=== PATIENT | male | born 1950 | race Caucasian/White ===

== ENCOUNTER → 2021-03-21 | Outpatient (CLI) | payer MEDICARE, OTHER | LOC: ZLAB.STJ 16:40 | DX: N18.6 End stage renal disease (principal); N25.81 Secondary hyperparathyroidism of renal origin; Z94.83 Pancreas transplant status ==

== ENCOUNTER → 2021-04-04 | Outpatient (REF) ==
[2021-04-04 14:57] LABS: BASO % 0.6 % (0.0-2.0); EOS # 0.2 (0.0-0.7); EOS % 4.9 % (0-4.0); GRAN # 2.1 (1.4-6.5); GRAN % 59.3 % (42.2-75.2); LYMPH # 0.9 (1.2-3.4); LYMPH % 25.1 % (20.0-51.0); MEAN CELL VOLUME 101 fl (80.0-100.0); MEAN CORPUSCULAR HGB CONC 32 g/dl (33.0-37.0); MEAN PLATELET VOLUME 11.4 fl (7.4-10.4); MONO # 0.3 (0.1-0.6); MONO % 9.8 % (1.7-9.3); PLATELET COUNT 179 K/mm3 (130-400); RED BLOOD COUNT 2.82 M/mm3 (4.20-5.60)
[2021-04-04 15:01] LABS: HEMATOCRIT 28.6 % (42.0-52.0); MEAN CORPUSCULAR HEMOGLOBIN 32 pg (27.0-31.0)
[2021-04-04 15:05] LABS: ALBUMIN 3.7 gm/dL (3.5-5.0); BILIRUBIN,TOTAL 0.3 mg/dL (0.0-1.0); CALCIUM 8.2 mg/dL (8.4-10.2); CREATININE, serum 6.68 (0.66-1.25); POTASSIUM 4.3 mmol/L (3.4-5.0); TOTAL PROTEIN 6.8 gm/dL (6.4-8.2)
[2021-04-04 15:35] LABS: THYROID STIMULATING HORMONE 1.76 uIU/mL (0.465-4.680)
== END ==
LOC: ZLAB.STJ 14:47
PROVIDERS: Family Medicine
DX: Z13.228 Encounter for screening for other metabolic disorders (principal); R68.89 Other general symptoms and signs; R06.03 Acute respiratory distress; E11.21 Type 2 diabetes mellitus with diabetic nephropathy; E03.9 Hypothyroidism, unspecified

== ENCOUNTER → 2021-04-11 | Outpatient (REF) | LOC: ZLAB.STJ 17:30 | DX: I10 Essential (primary) hypertension (principal); E11.9 Type 2 diabetes mellitus without complications; E03.9 Hypothyroidism, unspecified ==

== ENCOUNTER → 2021-04-16 | Outpatient (CLI) | payer MEDICARE, OTHER ==
[2021-04-16 17:14] LABS: BASO % 0.5 % (0.0-2.0); EOS # 0.1 (0.0-0.7); EOS % 2.9 % (0-4.0); GRAN # 2.6 (1.4-6.5); GRAN % 68.4 % (42.2-75.2); LYMPH # 0.7 (1.2-3.4); LYMPH % 19.5 % (20.0-51.0); MEAN CELL VOLUME 99 fl (80.0-100.0); MEAN CORPUSCULAR HGB CONC 32 g/dl (33.0-37.0); MEAN PLATELET VOLUME 11.7 fl (7.4-10.4); MONO # 0.3 (0.1-0.6); MONO % 8.4 % (1.7-9.3); PLATELET COUNT 143 K/mm3 (130-400); RED BLOOD COUNT 2.71 M/mm3 (4.20-5.60); REDCELL DISTRIBUTION WIDTH-CV 14.2 % (11.5-14.5)
[2021-04-16 17:18] LABS: HEMATOCRIT 26.9 % (42.0-52.0); HEMOGLOBIN 8.5 g/dl (13.5-18.0); MEAN CORPUSCULAR HEMOGLOBIN 31 pg (27.0-31.0)
[2021-04-16 17:20] LABS: ALBUMIN 3.5 gm/dL (3.5-5.0); BILIRUBIN,TOTAL 0.3 mg/dL (0.0-1.0); CALCIUM 8.6 mg/dL (8.4-10.2); CREATININE, serum 9.24 (0.66-1.25); TOTAL PROTEIN 6.4 gm/dL (6.4-8.2)
[2021-04-16 17:50] LABS: THYROID STIMULATING HORMONE 1.46 uIU/mL (0.465-4.680)
== END ==
LOC: ZLAB.STJ 16:17
PROVIDERS: Family Medicine
DX: I10 Essential (primary) hypertension (principal); D63.1 Anemia in chronic kidney disease; E11.9 Type 2 diabetes mellitus without complications; E03.9 Hypothyroidism, unspecified

== ENCOUNTER → 2021-04-17 | Outpatient (REF) ==
[2021-04-17 10:16] LABS: BASO % 0.7 % (0.0-2.0); EOS # 0.1 (0.0-0.7); EOS % 2.6 % (0-4.0); GRAN # 1.3 (1.4-6.5); GRAN % 48.3 % (42.2-75.2); LYMPH % 35.8 % (20.0-51.0); MEAN CELL VOLUME 100 fl (80.0-100.0); MEAN CORPUSCULAR HGB CONC 32 g/dl (33.0-37.0); MEAN PLATELET VOLUME 11.8 fl (7.4-10.4); MONO # 0.3 (0.1-0.6); MONO % 12.2 % (1.7-9.3); PLATELET COUNT 123 K/mm3 (130-400); RED BLOOD COUNT 2.54 M/mm3 (4.20-5.60); REDCELL DISTRIBUTION WIDTH-CV 14.3 % (11.5-14.5)
[2021-04-17 10:17] LABS: HEMATOCRIT 25.3 % (42.0-52.0); MEAN CORPUSCULAR HEMOGLOBIN 31 pg (27.0-31.0)
[2021-04-17 10:23] LABS: ALBUMIN 3.3 gm/dL (3.5-5.0); BILIRUBIN,TOTAL 0.2 mg/dL (0.0-1.0); CALCIUM 7.8 mg/dL (8.4-10.2); CREATININE, serum 5.81 (0.66-1.25); POTASSIUM 4.5 mmol/L (3.4-5.0)
[2021-04-17 10:53] LABS: THYROID STIMULATING HORMONE 1.33 uIU/mL (0.465-4.680)
== END ==
LOC: ZLAB.STJ 10:08
PROVIDERS: Family Medicine
DX: D63.1 Anemia in chronic kidney disease (principal); E11.21 Type 2 diabetes mellitus with diabetic nephropathy; R79.89 Other specified abnormal findings of blood chemistry; E11.22 Type 2 diabetes mellitus with diabetic chronic kidney disease; N18.9 Chronic kidney disease, unspecified; E03.9 Hypothyroidism, unspecified

== ENCOUNTER → 2021-07-06 | Outpatient (CLI) | payer MEDICARE, OTHER ==
[2021-07-06 16:18] LABS: CLOSTRIDIUM DIFF A/B NEG; CLOSTRIDIUM DIFF A/B INTERP No C.diff present
== END ==
LOC: ZLAB.STJ 13:44
PROVIDERS: Family Medicine
DX: A04.71 Enterocolitis due to Clostridium difficile, recurrent (principal)

== ENCOUNTER → 2021-07-16 | Outpatient (CLI) | payer MEDICARE, OTHER | LOC: ZCOL.LAB 16:30 | DX: E11.21 Type 2 diabetes mellitus with diabetic nephropathy (principal) ==

== ENCOUNTER → 2021-09-19 | Outpatient (CLI) | payer MEDICARE, OTHER ==
[2021-09-19 19:14] LABS: BASO % 0.3 % (0.0-2.0); GRAN # 2.1 K/mm3 (1.4-6.5); GRAN % 72.6 % (42.2-75.2); LYMPH # 0.6 K/mm3 (1.2-3.4); MEAN CELL VOLUME 103 fl (80.0-100.0); MEAN CORPUSCULAR HGB CONC 31 g/dl (33.0-37.0); MONO # 0.2 K/mm3 (0.1-0.6); MONO % 6.8 % (1.7-9.3); PLATELET COUNT 151 K/mm3 (130-400); RED BLOOD COUNT 2.65 M/mm3 (4.20-5.60); REDCELL DISTRIBUTION WIDTH-CV 14.6 % (11.5-14.5)
[2021-09-19 19:27] LABS: HEMATOCRIT 27.4 % (42.0-52.0); HEMOGLOBIN 8.4 g/dl (13.5-18.0); MEAN CORPUSCULAR HEMOGLOBIN 32 pg (27.0-31.0)
[2021-09-19 19:30] LABS: ALBUMIN 2.9 gm/dL (3.4-4.8); BILIRUBIN,TOTAL 0.8 mg/dL (0.2-1.2); CREATININE, serum 5.47 mg/dL (0.72-1.25); POTASSIUM 4.1 mmol/L (3.5-4.5); TOTAL PROTEIN 5.4 gm/dL (6.2-8.1)
[2021-09-19 19:49] LABS: THYROID STIMULATING HORMONE 2.674 uIU/mL (0.350-4.940)
== END ==
LOC: ZLAB.STJ 18:07
PROVIDERS: Family Medicine
DX: N18.6 End stage renal disease (principal); N25.81 Secondary hyperparathyroidism of renal origin; R53.83 Other fatigue

== ENCOUNTER → 2021-10-17 | Outpatient (CLI) | payer MEDICARE, OTHER ==
[2021-10-17 17:05] LABS: HEMATOCRIT 28.5 % (42.0-52.0)
[2021-10-17 17:20] LABS: CHOLESTEROL RISK RATIO 2.4
== END ==
LOC: ZLAB.STJ 15:17
PROVIDERS: Family Medicine
DX: D50.9 Iron deficiency anemia, unspecified (principal); E78.5 Hyperlipidemia, unspecified; E11.21 Type 2 diabetes mellitus with diabetic nephropathy

== ENCOUNTER → 2021-10-31 | Outpatient (CLI) | payer MEDICARE, OTHER ==
[2021-10-31 15:38] LABS: BASO % 0.8 % (0.0-2.0); EOS % 0.5 % (0.0-4.0); GRAN # 2.8 K/mm3 (1.4-6.5); GRAN % 76.4 % (42.2-75.2); HEMOGLOBIN 10.6 g/dl (13.5-18.0); LYMPH # 0.6 K/mm3 (1.2-3.4); LYMPH % 15.5 % (20.0-51.0); MEAN CELL VOLUME 104 fl (80.0-100.0); MEAN CORPUSCULAR HEMOGLOBIN 33 pg (27-31); MEAN CORPUSCULAR HGB CONC 32 g/dl (33.0-37.0); MEAN PLATELET VOLUME 11.9 fl (7.4-10.4); MONO # 0.2 K/mm3 (0.1-0.6); MONO % 6.3 % (1.7-9.3); PLATELET COUNT 178 K/mm3 (130-400); RED BLOOD COUNT 3.21 M/mm3 (4.20-5.60); REDCELL DISTRIBUTION WIDTH-CV 16.2 % (11.5-14.5)
[2021-10-31 15:43] LABS: INR 1.4 (0.8-3.0); PROTHROMBIN TIME 15.6 SECONDS (9.7-12.8)
[2021-10-31 15:46] LABS: HEMATOCRIT 33.5 % (42.0-52.0)
[2021-10-31 15:54] LABS: ALBUMIN 2.9 gm/dL (3.4-4.8); BILIRUBIN,TOTAL 0.8 mg/dL (0.2-1.2); CALCIUM 6.4 mg/dL (8.4-10.2); CREATININE, serum 7.8 mg/dL (0.72-1.25); TOTAL PROTEIN 5.4 gm/dL (6.2-8.1)
== END ==
LOC: ZLAB.STJ 13:38
PROVIDERS: Physician Assistant
DX: R19.5 Other fecal abnormalities (principal); R19.7 Diarrhea, unspecified

== ENCOUNTER → 2021-11-02 | Outpatient (CLI) | payer MEDICARE, OTHER ==
[2021-11-02 14:46] LABS: CLOSTRIDIUM DIFF A/B NEG; CLOSTRIDIUM DIFF A/B INTERP No C.diff present
== END ==
LOC: ZLAB.STJ 13:07
PROVIDERS: Physician Assistant
DX: R19.7 Diarrhea, unspecified (principal)

== ENCOUNTER → 2021-11-15 | Outpatient (CLI) | payer MEDICARE, OTHER ==
[~2021-11-15] MED LIST: ARICEPT10 MG PO; ATIVAN 0.50.5 MG/TAB PO; B-121000 MCG PO; CELLCEPT 5500 MG/TAB PO; CREON 36000 PO; FLEET MINE1 BOT/133 RC; FOLIC ACID 11 MG/TA1 PO; GENTLE LAXATIVE10 MG RC; GOLYTELY SOLU4000 ML PO; IMODIUM 2MG CAPS2 MG PO; LEVOXYL0.1 MG PO; LOMOTIL 0.025 M1 TAB PO; PERIACTIN 4MG TA4 MG PO; PREPH RC; PROGRAF 1MG1 MG PO; REFRESH CELLUVI1 SOL OP; REFRESH PLUS 00.4 M1 OP; REMERON30 MG PO; ROXANOL 20MG20 MG/ML SL; SINGULAIR 110 MG/TAB PO; TRANSDERM-0.5 MG/21 TD; TYLENOL 325MG325 MG PO; ULTRAM 50MG TAB50 MG PO; VITAMIN D31000 IU PO; ZOFRAN 4MG T4 MG/TAB PO; [UNRECOGNIZED DRUG - CODE] PO
[2021-11-15 18:05] LABS: CLOSTRIDIUM DIFF A/B NEG; CLOSTRIDIUM DIFF A/B INTERP No C.diff present
[2021-11-19] VITALS (22 sets, daily range): O2SAT 66–100
== END ==
LOC: ZLAB.STJ 15:18
PROVIDERS: Physician Assistant
DX: R19.7 Diarrhea, unspecified (principal)

== ENCOUNTER 2021-11-16 02:32 | Inpatient (IN) | payer MEDICARE, OTHER ==
[~2021-11-16] VITALS: Ht 167.6 cm; Wt 48.3 kg
[2021-11-16] VITALS (419 sets, daily range): BP systolic 89–109; BP diastolic 69–81; PULSE 67–75; TEMP 37.2; O2SAT 87–100
[2021-11-16 02:56] LABS: HEMOGLOBIN 10.8 g/dl (13.5-18.0); MEAN CELL VOLUME 99 fl (80.0-100.0); MEAN CORPUSCULAR HEMOGLOBIN 33 pg (27-31); MEAN CORPUSCULAR HGB CONC 33 g/dl (33.0-37.0); MEAN PLATELET VOLUME 11.8 fl (7.4-10.4); PLATELET COUNT 132 K/mm3 (130-400); RED BLOOD COUNT 3.31 M/mm3 (4.20-5.60); REDCELL DISTRIBUTION WIDTH-CV 14.3 % (11.5-14.5)
[2021-11-16 02:59] LABS: HEMATOCRIT 32.8 % (42.0-52.0)
[2021-11-16 03:10] LABS: BAND 11 % (0-10); HYPOCHROMIA 1+; METAMYELOCYTE 2 % (0-0); NEUTROPHILS 85 % (42.0-75.2); PLATELET ESTIMATE NORMAL (NORMAL)
[2021-11-16 03:11] LABS: SCHISTOCYTES 1+
[2021-11-16 03:13] LABS: ALBUMIN 2.6 gm/dL (3.4-4.8); CALCIUM 6.6 mg/dL (8.4-10.2); POTASSIUM 4.7 mmol/L (3.5-4.5); TOTAL PROTEIN 4.8 gm/dL (6.2-8.1)
[2021-11-16 03:37] LABS: CREATININE, serum 4.46 mg/dL (0.72-1.25)
[2021-11-16 05:25] LABS: ARTERIAL BLD GAS O2 SATURATION 99.5 % (92-100); ARTERIAL BLD GAS TCO2 CT 27.6; ARTERIAL BLOOD GAS BASE EXCESS 1.5 (-2-2); ARTERIAL BLOOD GAS HCO3 26.3 meq/L (22-26); ARTERIAL BLOOD GAS PCO2 42.3 mmHg (35-45); ARTERIAL BLOOD GAS pH 7.41 (7.35-7.45)
[2021-11-16 05:26] LABS: ARTERIAL BLOOD GAS PO2 213.6 mmHg (80-100)
[2021-11-16 05:59] LABS: ARTERIAL BLD GAS O2 SATURATION 96.9 % (92-100); ARTERIAL BLD GAS TCO2 CT 21.9; ARTERIAL BLOOD GAS BASE EXCESS 0.7 (-2-2); ARTERIAL BLOOD GAS HCO3 21.2 meq/L (22-26); ARTERIAL BLOOD GAS PCO2 22.2 mmHg (35-45); ARTERIAL BLOOD GAS PO2 91.4 mmHg (80-100); ARTERIAL BLOOD GAS pH 7.59 (7.35-7.45)
[2021-11-16 06:03] LABS: INR 1.7 (0.8-3.0); PROTHROMBIN TIME 18.8 SECONDS (9.7-12.8)
[2021-11-16 06:17] LABS: SALICYLATE < 5.0 mg/dL (15.0-30.0)
[2021-11-16 06:24] LABS: TROPONIN-I 0.593 ng/mL (0.00-0.033)
[2021-11-16] MEDS ORDERED: GOLYTELY SOLU4000 ML PO (07:10)
[2021-11-16] MEDS ORDERED: PREPH RC (07:11)
[2021-11-16] MEDS ORDERED: LOMOTIL 0.025 M1 TAB PO (07:11)
[2021-11-16] MEDS ORDERED: TYLENOL 325MG325 MG PO (07:11)
[2021-11-16] MEDS ORDERED: ZOFRAN 4MG T4 MG/TAB PO (07:11)
[2021-11-16] MEDS ORDERED: PROGRAF 1MG1 MG PO (07:12)
[2021-11-16] MEDS ORDERED: [UNRECOGNIZED DRUG - CODE] PO ×2 (07:12)
[2021-11-16] MEDS ORDERED: CREON 36000 PO (07:13)
[2021-11-16] MEDS ORDERED: IMODIUM 2MG CAPS2 MG PO (07:13)
[2021-11-16] MEDS ORDERED: CELLCEPT 5500 MG/TAB PO (07:13)
[2021-11-16] MEDS ORDERED: GENTLE LAXATIVE10 MG RC (07:14)
[2021-11-16] MEDS ORDERED: FLEET MINE1 BOT/133 RC (07:14)
[2021-11-16] MEDS ORDERED: PERIACTIN 4MG TA4 MG PO (07:14)
[2021-11-16] MEDS ORDERED: ARICEPT10 MG PO (07:14)
[2021-11-16] MEDS ORDERED: FOLIC ACID 11 MG/TA1 PO (07:15)
[2021-11-16] MEDS ORDERED: REMERON30 MG PO (07:15)
[2021-11-16] MEDS ORDERED: SINGULAIR 110 MG/TAB PO (07:15)
[2021-11-16] MEDS ORDERED: ULTRAM 50MG TAB50 MG PO (07:15)
[2021-11-16] MEDS ORDERED: LEVOXYL0.1 MG PO (07:15)
[2021-11-16] MEDS ORDERED: VITAMIN D31000 IU PO (07:16)
[2021-11-16] MEDS ORDERED: B-121000 MCG PO (07:16)
[2021-11-16] MEDS ORDERED: REFRESH PLUS 00.4 M1 OP (07:16)
[2021-11-16] MEDS ORDERED: REFRESH CELLUVI1 SOL OP (07:17)
--- NOTE | 2021-11-16 09:05 | NUR ---
PT ADMITTED TO ICU FROM ER. PT WAS BROUGHT TO ER EARLY THIS AM FROM [facility] DUE TO BEING FOUND NON RESPONSIVE, HYPOTHERMIC, AND HYPOGLYCEMIC. PT WAS INTUBATED IN ER AND BEGAN REWARMING WITH DAYAMI HUGGER. PT HAS EXTENSIVE MEDICAL HISTORY THAT WAS REVIEWED WITH PT'S DAUGHTER, EVERETT. EVERETT IS DPOA. DPOA WAS COPIED AND PLACED IN PT'S FILE. UPON ARRIVING TO ICU, PT WAS TRANSFERED TO BED, GTTS WERE CONFIRMED, RECTAL TUBE PLACED DUE TO CONTINUOUS DIARRHEA AND IMPAIRED SKIN INTEGRITY. RECTAL TEMP PROBE PLACED FOR CLOSE/ACCURATE TEMP MONITORING. PT CONTINUES TO BE HYPOTHERMIC AT 33.2 DEGREES CELSIUS. ONCE PT WAS SETTLED, FAMILY UPDATED BY DR. GARCIA. PT'S DAUGHTER NOW AT BEDSIDE.
--- NOTE | 2021-11-16 09:30 | NUR ---
Family meeting with patient's 2 daughters & extended family present. One son lives in [place]; not present or pn phone. Dr. Wilkins asked questions about patient's history that was not able to be obtained from [place] records. Dr. Wilkins updated family on status & plan of care. Code status discussed & daughter/DPOA; family requests DNR status. This RN advised of visitor guidelines & discussed opportunities for remote visits using technology. Requested copy of DPOA paperwork from daughter. All questions answered.
[2021-11-16 10:32] LABS: BASO % 0.3 % (0.0-2.0); EOS % 0.3 % (0.0-4.0); GRAN % 81.3 % (42.2-75.2); LYMPH # 0.5 K/mm3 (1.2-3.4); LYMPH % 13.7 % (20.0-51.0); MEAN CELL VOLUME 101 fl (80.0-100.0); MEAN CORPUSCULAR HGB CONC 32 g/dl (33.0-37.0); MONO # 0.1 K/mm3 (0.1-0.6); MONO % 3.6 % (1.7-9.3); PLATELET COUNT 85 K/mm3 (130-400); RED BLOOD COUNT 2.78 M/mm3 (4.20-5.60); REDCELL DISTRIBUTION WIDTH-CV 14.4 % (11.5-14.5)
[2021-11-16 10:35] LABS: HEMATOCRIT 28.1 % (42.0-52.0); MEAN CORPUSCULAR HEMOGLOBIN 32 pg (27-31)
[2021-11-16 10:45] LABS: ALBUMIN 2.2 gm/dL (3.4-4.8); CALCIUM 6.5 mg/dL (8.4-10.2); CREATININE, serum 4.3 mg/dL (0.72-1.25); POTASSIUM 4.3 mmol/L (3.5-4.5); TOTAL PROTEIN 4.1 gm/dL (6.2-8.1)
[2021-11-16 10:53] LABS: TROPONIN-I 6 HR POST INITIAL 0.674 ng/mL (0.00-0.033)
[2021-11-16 10:54] LABS: ARTERIAL BLD GAS O2 SATURATION 99.1 % (92-100); ARTERIAL BLD GAS TCO2 CT 23.9; ARTERIAL BLOOD GAS BASE EXCESS -0.3 (-2-2); ARTERIAL BLOOD GAS HCO3 22.9 meq/L (22-26); ARTERIAL BLOOD GAS PCO2 32.4 mmHg (35-45); ARTERIAL BLOOD GAS PO2 235.2 mmHg (80-100); ARTERIAL BLOOD GAS pH 7.47 (7.35-7.45)
--- NOTE | 2021-11-16 13:05 | NUR ---
Patient currently on mechanical vent. Phone call made to the patient's daughter Colin ([phone]) to complete intake. Patient resides at [facility]. He receives assistance with his ADL's from care staff and utilizes a walker to assist with ambulation. Patient has no oxygen needs at home. PCP is Dr. Dudley and he receives his medications through the [facility]pc. Patient has a DPOA-HC located in his EMR listing Colin as his agent. Patient is currently on dialysis M,W,F. Garth with [facility] reports that over this last month they have been having conversations with the patient's family about transitioning to hospice care due to his kidneys. Garth reports that during these conversations, the patient has verbalized that he would like to move to comfort care, but that the family has been a barrier to this transition.
--- NOTE | 2021-11-16 15:03 | NUR ---
Met with daughter, Colin, at bedside and she called her brother, Mansoor, to also speak with RAAD Sky and Shan. In discussion with the patient's children, they were waiting for the results of the scope that was supposed to take place today before moving the patient to hospice care in [place]. We discussed what comfort care would look like here and the visitiation policy, if that is something they were thinking about. Colin is very worried about getting as much family here as possible if they decide to move to comfort care. Per discussion with her and Mansoor, the plan right now is to see how the patient does over the weekend and if he can come off the ventilator and then talk again Friday.
--- NOTE | 2021-11-16 16:15 | NUR ---
RAAD and palliative care RN Elise met with patient's daughter Colin at bedside. Colin contacts her brother who is located in [place] by phone and places him on speaker phone. Colin states that before this, they were waiting to see what the patient's scope showed before transitioning him to comfort care and moving him to a facility in [place] so he could be closer to her. Colin voices that the family being able to see him is her top priority right now. The patient has 3 childrens and several grandchildren. All are 18 years of age and over. Colin would like more time to speak with her siblings.
[2021-11-16 16:20] LABS: COLLECTION METHOD CATHETER
[2021-11-16 16:46] LABS: PH 8 (5-8); SQUAMOUS EPITHELIAL None Seen /hpf (0-10); URINE APPEARANCE Cloudy (CLEAR/HAZY); URINE BACTERIA None Seen /hpf (NONE SEEN); URINE BILIRUBIN Negative (NEGATIVE); URINE BLOOD 1+ (NEGATIVE); URINE COLOR Yellow (YELLOW); URINE GLUCOSE Negative (NEGATIVE); URINE KETONE Negative (NEGATIVE); URINE LEUKOCYTE ESTERASE Trace (NEGATIVE); URINE NITRATE Negative (NEGATIVE); URINE PROTEIN(semi-quant) 3+ (NEGATIVE); URINE UROBILINOGEN Negative (NEGATIVE)
[2021-11-16 17:10] LABS: CLOSTRIDIUM DIFF A/B NEG; CLOSTRIDIUM DIFF A/B INTERP No C.diff present
--- NOTE | 2021-11-16 17:40 | NUR ---
SEDATION VACATION NOT APPROPRIATE AT THIS TIME. PT HAS WOKEN UP THROUGHOUT SHIFT AND HAS BEEN ABLE TO FOLLOW COMMANDS IN BETWEEN DISTURBANCES.
--- NOTE | 2021-11-16 19:55 | NUR ---
BEDSIDE REPORT GIVEN TO STEPHY GUZMÁN. PT'S DAUGHTER, EVERETT PRESENT FOR REPORT. ALL QUESTIONS ANSWERES APPROPRIATELY.
[2021-11-16 20:17] LABS: ARTERIAL BLD GAS O2 SATURATION 98.8 % (92-100); ARTERIAL BLD GAS TCO2 CT 22.3; ARTERIAL BLOOD GAS BASE EXCESS -2.1 (-2-2); ARTERIAL BLOOD GAS HCO3 21.3 meq/L (22-26); ARTERIAL BLOOD GAS pH 7.44 (7.35-7.45)
[2021-11-16 20:19] LABS: ARTERIAL BLOOD GAS PO2 156.7 mmHg (80-100)
--- NOTE | 2021-11-16 20:43 | NUR ---
DR. LEVY PHONED, UPDATED ON PATIENT AND PLAN FOR POSSIBLE COMFORT CARE ON FRIDAY DEPENDING ON HOW PATIENT DID OVER THE WEEKEND, DR. LEVY STATED THAT HE DID NOT PLAN ON DOING DIALYSIS THIS WEEKEND AND WOULD WAIT ON DECISION ON FRIDAY TO DECIDE ABOUT ADDITIONAL DIALYSIS
[2021-11-17] VITALS (692 sets, daily range): BP systolic 74–126; BP diastolic 60–95; PULSE 65–81; TEMP 36; O2SAT 33–100
[2021-11-17 05:03] LABS: ARTERIAL BLD GAS O2 SATURATION 96.1 % (92-100); ARTERIAL BLD GAS TCO2 CT 20.7; ARTERIAL BLOOD GAS BASE EXCESS -4.3 (-2-2); ARTERIAL BLOOD GAS HCO3 19.7 meq/L (22-26); ARTERIAL BLOOD GAS PCO2 32.4 mmHg (35-45)
[2021-11-17 05:28] LABS: MEAN CELL VOLUME 101 fl (80.0-100.0); MEAN CORPUSCULAR HGB CONC 31 g/dl (33.0-37.0); MEAN PLATELET VOLUME 12.2 fl (7.4-10.4); PLATELET COUNT 109 K/mm3 (130-400); RED BLOOD COUNT 3.52 M/mm3 (4.20-5.60); REDCELL DISTRIBUTION WIDTH-CV 14.6 % (11.5-14.5)
[2021-11-17 05:34] LABS: HEMATOCRIT 35.6 % (42.0-52.0); HEMOGLOBIN 11.1 g/dl (13.5-18.0); MEAN CORPUSCULAR HEMOGLOBIN 32 pg (27-31)
--- NOTE | 2021-11-17 05:35 | NUR ---
PATIENT'S BP NOTED TO BE LOW 70'S OVER 60'S DESPITE NON MEDICAL INTERVENTIONS, AROUSING PATIENT FROM SLEEP, REPOSITIONING, ADJUSTMENT OF BP CUFF. DECREASED SEDATION MEDICATIONS AT THIS TIME AND NOTIFIED VICK ANDERSON WITH ADDITIONAL ORDERS FOR 500ML FLUID BOLUS AND LEVOPHED, ALSO INFORMED OF CONTINUED INCREASE IN BLOOD SUGAR WITH ORDER TO RETURN TO PREVIOUS RATE OF 50ML/HR
[2021-11-17 05:56] LABS: INR 1.9 (0.8-3.0)
[2021-11-17 05:57] LABS: BAND 6 % (0-10); EOSINOPHIL 1 % (0-4); LYMPHOCYTE 5 % (20.0-51.0); NEUTROPHILS 85 % (42.0-75.2)
[2021-11-17 05:58] LABS: ANISOCYTOSIS 1+; HYPOCHROMIA 1+; POLYCHROMASIA 1+; SCHISTOCYTES 1+
[2021-11-17 05:59] LABS: ALBUMIN 2.2 gm/dL (3.4-4.8); BILIRUBIN,TOTAL 0.8 mg/dL (0.2-1.2); CALCIUM 6.5 mg/dL (8.4-10.2); CREATININE, serum 4.9 mg/dL (0.72-1.25); MAGNESIUM 1.5 mg/dL (1.6-2.6); PHOSPHOROUS 11.4 mg/dL (2.3-4.7); POTASSIUM 4.8 mmol/L (3.5-4.5); TOTAL PROTEIN 4.4 gm/dL (6.2-8.1)
[2021-11-17 06:12] LABS: TROPONIN-I 1.04 ng/mL (0.00-0.033)
--- NOTE | 2021-11-17 07:35 | NUR ---
SEDATION VACATION INITATED DUE TO LOW BP
--- NOTE | 2021-11-17 09:30 | NUR ---
Dr. Wilkins rounds on patient at this time. He states that there will not be a weaning trial today. He discusses this patient's situation and prognosis with the patient's daughter Colin who is currently at the bedside. He does not feel that the patient would do well if extubated given all of his current and chronic issues. He recommends palliative measures to be in place for this patient. She agrees and states that her brother is on his way up from [place] and once all the siblings are together, they will proceed with comfort care. Dr. Wilkins and I are present for this conversation.
--- NOTE | 2021-11-17 10:40 | NUR ---
Colin Fisher, asks what the protocol is for comfort measures. I explain that once the family is ready for him to come off the ventilator, we would pull the endotracheal tube, and turn off his iv drip sedation. If he needs medication for pain or anxiety, that will be given. Aggressive measures will be ceased and focus on comfort will be primary goal. She verbalizes understanding. She then requests for all 3 siblings and 5 grandchildren (all adult) to be allowed to be present for extubation and comfort care. I call Teresita, ICU director, and obtain permission for this plan. This is communicated with the daughter, she verbalizes understanding.
--- NOTE | 2021-11-17 14:41 | NUR ---
Patient's daughter Colin at patient's bedside. Colin states that they are planning on going comfort care tomorrow. He brother is on her way up from [place] today. Colin verbalizes that the patient is christianity and would like to have a tank refinisher come in today and would like the tank refinisher present tomorrow while the family withdraws care to provide the patient his last rites. Patient belongs to [facility] in [place]. Octaviaariel Diaz notified and will get ahold of a tank refinisher to vist the patient today. Family had already been working with [facility] in [place] while he was at [facility]. Patient's RN notified of the above.
--- NOTE | 2021-11-17 19:00 | NUR ---
Bedside report given to STEPHY Rod. Plan for tomoroww 11/18 discussed. Java Web User Interface Developer has been in to give last rights and social science professor has also been in to meet with daughter. care turned over to Viola
--- NOTE | 2021-11-17 19:00 | NUR ---
BEDSIDE REPORT WITH DAY SHIFT NURSE STEPHY WATKINS DISCUSSED WITH PATIENT'S DAUGHTER PLAN OF CARE AND PROGRESSION TO COMFORT CARE [place] (11/18) AFTER HER BROTHER HAD ARRIVED FROM [place] EXPLAINED THAT THEY WOULD BE ALLOWED TIME TO VISIT WITH PATIENT PRIOR TO REMOVAL OF ET TUBE AND THAT WHEN THEY ARE READY (THEY WOULD NEED TO INFORM US) THAT CURRENT MEDICATIONS WOULD BE STOPPED AND ET TUBE WOULD BE REMOVED, ALSO EXPLAINED TIME FOR PATIENT TO PASS COULD HAPPEN QUICKLY OR LAST FOR SOME TIME DEPENDING ON PATIENT BUT THAT MEDICATIONS TO MAKE HIM COMFORTABLE WOULD BE AVAILABLE. EVERETT ABLE TO VERBALIZE PLAN OF CARE AND ASK APPROPRIATE QUESTIONS ALSO REINFORCED THAT THEY WERE APPROVED FOR 8 PEOPLE TO VISIT WITH PATIENT
[2021-11-18] VITALS (322 sets, daily range): BP systolic 101–121; BP diastolic 70–97; PULSE 61–95; TEMP 37.4; O2SAT 69–100
[2021-11-18 05:43] LABS: HEMOGLOBIN 11.7 g/dl (13.5-18.0); MEAN CELL VOLUME 100 fl (80.0-100.0); MEAN CORPUSCULAR HEMOGLOBIN 32 pg (27-31); MEAN CORPUSCULAR HGB CONC 32 g/dl (33.0-37.0); MEAN PLATELET VOLUME 11.9 fl (7.4-10.4); PLATELET COUNT 121 K/mm3 (130-400); RED BLOOD COUNT 3.65 M/mm3 (4.20-5.60); REDCELL DISTRIBUTION WIDTH-CV 14.6 % (11.5-14.5)
[2021-11-18 05:46] LABS: HEMATOCRIT 36.6 % (42.0-52.0)
[2021-11-18 05:54] LABS: INR 1.9 (0.8-3.0); PROTHROMBIN TIME 20.9 SECONDS (9.7-12.8)
[2021-11-18 05:59] LABS: ALBUMIN 2.1 gm/dL (3.4-4.8); BILIRUBIN,TOTAL 0.5 mg/dL (0.2-1.2); CALCIUM 6.4 mg/dL (8.4-10.2); CREATININE, serum 5.68 mg/dL (0.72-1.25); PHOSPHOROUS 12.5 mg/dL (2.3-4.7); POTASSIUM 5.1 mmol/L (3.5-4.5); TOTAL PROTEIN 4.5 gm/dL (6.2-8.1)
[2021-11-18 06:41] LABS: MAGNESIUM 1.5 mg/dL (1.6-2.6)
[2021-11-18 06:52] LABS: BAND 4 % (0-10); BURR CELLS 2+; LYMPHOCYTE 5 % (20.0-51.0); METAMYELOCYTE 1 % (0-0); NEUTROPHILS 88 % (42.0-75.2); PLATELET ESTIMATE NORMAL (NORMAL); SCHISTOCYTES 1+
[2021-11-18 06:53] LABS: ANISOCYTOSIS 1+; HYPOCHROMIA 2+
--- NOTE | 2021-11-18 06:54 | NUR ---
SEDATION VACATION NOT PREFORMED AT THIS TIME DUE TO PATIENT BEING ABLE TO OPEN EYES AND NOD APPROPRIATELY AT CURRENT LEVEL AND PLAN FOR PATIENT TO PROGRESS TO COMFORT CARE TODAY
--- NOTE | 2021-11-18 17:46 | NUR ---
0935- pt SEDATION PUT ON STANDBY PER DR. GARCIA FOR A WEANING TRIAL. 1135- PATIENT VENT PUT BACK ON AC MODE PATIENT IS NOT TOLERATING CPAP PRESSURE SUPPORT TRIAL ANY LONGER. SEDATION MEDICATION RESUMED AND TITRATED APPROPRIATELY PER ORDER.
--- NOTE | 2021-11-18 19:00 | NUR ---
ALSO SPOKE WITH PATIENT'S DAUGHTER IN REFERENCE TO NUMBER OF PEOPLE TO BE ALLOWED IN ROOM WITH PATIENT SHE STATED THAT THERE WERE 12 PEOPLE THAT WOULD WANT TO BE THERE, EXPLAINED THAT MANY WOULD NOT BE ALLOWED DUE TO ROOM AVAILABLE HOWEVER POSSIBLE WOULD BE ABLE TO ALLOW THEM TO SWITCH OFF THAT COULD BE CLARIFIED WITH OUR DIRECTOR, MING IN THE MORNING, ALSO TO NOT BE EXPECTED FOR COMFORT CARE TO BEGIN BEFORE NOON A GENERAL TIME FRAME
--- NOTE | 2021-11-18 19:55 | NUR ---
SPOKE WITH PATIENT'S DAUGHTER, EVERETT AT BEDSIDE TO CLARIFY PLAN FOR TOMMOROW PER HER REQUEST. STATED THAT SHE UNDERSTOOD THAT SEDATION WOULD BE TURNED OFF AT MIDNIGHT, AND THAT HE WOULD START A "SPONTANEOUS BREATHING TRIAL" AT 7 AM WITH AN ABG TO BE DONE AT 9 AM THEN AFTER THAT THE TUBE WAS GOING TO BE PULLED, CLARIFIED TIMES 2 THAT NO MATTER WHAT IT WAS HER WISHES FOR THE ET TUBE TO BE REMOVED AND SHE STATED YES, THAT HE DID NOT HAVE A QUALITY OF LIFE AT THIS TIME AND THAT WITH COMFORT CARE HE COULD AT LEAST HAVE HIS FAMILY AROUND HIM AND HOPEFULLY BE ABLE TO TALK WITH THEM.
[2021-11-19] VITALS (139 sets, daily range): BP systolic 105–121; BP diastolic 65–92; PULSE 63–85; TEMP 97.5–98.1; O2SAT 34–100
--- NOTE | 2021-11-19 | NUR ---
sedation turned off at this time will continue to monitor patient
--- NOTE | 2021-11-19 01:40 | NUR ---
NOTED PATIENT AWAKE WITH EYES OPEN, ASKED IF IN PAIN AND PATIENT SHOOK HEAD "NO"
--- NOTE | 2021-11-19 03:23 | NUR ---
PATIENT OVERBREATHING VENT MAKING ALARM GO OFF, ENTERED ROOM TO CHECK ON PATIENT AND NOTED HIS HAND ON ET TUBE, RESECURED RESTRAINT AND ASKED PATIENT IF HE WAS HURTING, PATIENT NODDED HEAD "YES" NOTIFIED VICK ANDERSON AND NEW ORDER GIVEN FOR MORPHINE
[2021-11-19 03:58] LABS: HEMOGLOBIN 10.8 g/dl (13.5-18.0); MEAN CELL VOLUME 100 fl (80.0-100.0); MEAN CORPUSCULAR HEMOGLOBIN 32 pg (27-31); MEAN CORPUSCULAR HGB CONC 32 g/dl (33.0-37.0); MEAN PLATELET VOLUME 13.4 fl (7.4-10.4); PLATELET COUNT 68 K/mm3 (130-400); RED BLOOD COUNT 3.36 M/mm3 (4.20-5.60); REDCELL DISTRIBUTION WIDTH-CV 14.6 % (11.5-14.5)
[2021-11-19 04:04] LABS: HEMATOCRIT 33.5 % (42.0-52.0)
[2021-11-19 04:32] LABS: BILIRUBIN,TOTAL 0.7 mg/dL (0.2-1.2); CREATININE, serum 6.23 mg/dL (0.72-1.25); MAGNESIUM 1.5 mg/dL (1.6-2.6); PHOSPHOROUS 12.7 mg/dL (2.3-4.7); POTASSIUM 4.9 mmol/L (3.5-4.5); TOTAL PROTEIN 4.2 gm/dL (6.2-8.1)
[2021-11-19 04:59] LABS: CALCIUM 5.8 mg/dL (8.4-10.2)
[2021-11-19 05:50] LABS: BAND 3 % (0-10); LYMPHOCYTE 2 % (20.0-51.0); NEUTROPHILS 93 % (42.0-75.2); PLATELET ESTIMATE DECREASED (NORMAL)
--- NOTE | 2021-11-19 06:33 | NUR ---
PATIENT IS AWAKE AND ALERT, LAYING IN BED WITH EYES CLOSED, CURRENTLY ON SBT WITH CPAP, WHEN ASKED PATIENT INDICATES THAT PAIN MEDICATION HELPS "A LITTLE BIT" ACCOMPLISHED USING MULTIPLE YES/NO QUESTIONS. PATIENT HAS BEEN OFF OF SEDATION SINCE MIDNIGHT AND AWAKE AND ALERT SINCE APPROX 0130.
[2021-11-19 09:22] LABS: ARTERIAL BLD GAS O2 SATURATION 96.7 % (92-100); ARTERIAL BLD GAS TCO2 CT 14.8; ARTERIAL BLOOD GAS BASE EXCESS -9.1 (-2-2)
[2021-11-19 09:23] LABS: ARTERIAL BLOOD GAS PCO2 23.2 mmHg (35-45)
--- NOTE | 2021-11-19 10:02 | NUR ---
0955- PT EXTUBATED BY RT, RN BEDSIDE FOR ASSISTANCE. PT MAINTAINING SPO2 RA AT 99%
--- NOTE | 2021-11-19 11:03 | NUR ---
Spoke with Colin BRAY. This RN, ICU Director and SW spoke with Colin who explained that she and the patient wish to move forward with comfort care measures at this time. Dr. Pérez notified.
--- NOTE | 2021-11-19 11:50 | NUR ---
Patient scheduled for a trach and peg tomorrow. Clinical referral faxed to [facility]
--- NOTE | 2021-11-19 11:52 | NUR ---
Mick, ICU director and patient's RN met with patient and his daughter Colin at bedside to discuss POC. Daughter verbalizes that the goal would be to transfer her father to a prison in [place] and [facility]. Patient Has been established with [facility] in the past for home health.
--- NOTE | 2021-11-19 13:15 | NUR ---
PT to room 315 via bed at 1300. Care relinquished at this time.
--- NOTE | 2021-11-19 13:58 | NUR ---
Pt arrived to the floor at this time. He is alert, denies any pain at this time. Currently breathing on RA. Denies the want for any PO intake. Rectal tube draining yellow watery stool. Scopalamine patch placed behind left ear. POC discussed with family. Isolation precautions followed at this time. Call light within reach.
--- NOTE | 2021-11-19 14:00 | NUR ---
Clinical referrals sent to: [facility] (they only have 1 bed, with other referrals ahead of him) [facility]
--- NOTE | 2021-11-19 18:47 | NUR ---
Family at bedside. Pt reports feeling stiff, as well as a CHRISTOPHER. PRN pain medications administered. POC discussed with family. Isolation precautions in place.
--- NOTE | 2021-11-19 20:15 | NUR ---
Bedside shift report received, assumed care for night shift manager. Assessment complete. A&Ox4. Family is at bedside. C/O pain to back-reating pain 10/10 on pain scale. States last dose of pain med didnt help. Roxanol given at this time. Egg crate mattress applied to bed. Right IJ flushes well. Right AC/FA INT flushes well. Fistula to left forearm. Noted to have a skin tear to right elbow that was actively bleeding-dressing applied. Multiple bruised areas to upper extremities. Abrasions to nose and left hip. Family requesting vital signs continue to be done. Rectal tube in place. Murphy cath with no output currently. Plan of care discussed with patient and family for repositioning/pain control/comfort care. Verbalizes understanding. Call light in reach. Will monitor.
--- NOTE | 2021-11-20 01:00 | NUR ---
Family refused repositioning.
[2021-11-20 01:10] VITALS: BP 124/89; PULSE 90; TEMP 97.8
--- NOTE | 2021-11-20 04:00 | NUR ---
Family called stating patient appeared to be having problems breathing. O2 saturation 95% on room air. Intermittent pauses in breathing. No s/s of discomfort noted.
[2021-11-20 04:50] VITALS: BP 115/80; PULSE 89
--- NOTE | 2021-11-20 05:10 | NUR ---
VICK Sky to room to discuss comfort care with family. Family requesting extra interventions/vitals. This nurse discussed comfort care with family but they still seem hesitant.
--- NOTE | 2021-11-20 05:20 | NUR ---
lace tearing supervisor notified of familys request for a Financial Foundations Representative. [place] to contact for family.
--- NOTE | 2021-11-20 07:12 | NUR ---
PT LAYING IN BED WITH FAMILY AT BEDSIDE. FAMILY STATES NO NEEDS AT THIS TIME.
[2021-11-20] MEDS ORDERED: TRANSDERM-0.5 MG/21 TD (07:24)
[2021-11-20] MEDS ORDERED: ROXANOL 20MG20 MG/ML SL (07:24)
[2021-11-20] MEDS ORDERED: ATIVAN 0.50.5 MG/TAB PO (07:24)
--- NOTE | 2021-11-20 08:25 | NUR ---
(*Late Entry) Clinical referral sent to Lizbeth Strong at [facility]. Lizbeth will get in touch with " her contacts" at the care home to help find a placement. Lizbeth states that she is going to go ahead and order oxygen, an air mattress, and hygiene neccessities for the patient. Placement at [facility] in [place] for this patient and they are looking at a transport time of the patient arriving between 11-1130 this morning. Patient's daughter left Lizbeth a message that the patient would not be able to make the trip. RAAD Estrada notified of the above.
--- NOTE | 2021-11-20 08:30 | NUR ---
DR. SALVADOR AT BEDSIDE. FAMILY STATES THAT THEY DO NOT WANT PT MOVED TO HOSPICE FACILITY AT THIS TIME. THEY WOULD LIKE TO JUST STAY IN ROOM. VERBALIZED UNDERSTANDING. NO OTHER NEEDS WERE VOICED AT THIS TIME. PT RESTING IN BED WITH VERY SHALLOW RESPIRTAIONS. NO SIGNS/SYMPTOMS OF PAIN OR DISCOMFORT. PT UNRESPONSIVE.
--- NOTE | 2021-11-20 09:03 | NUR ---
PT PUT CALL LIGHT ON AND STATES THAT THEY THINK PT HAS PASSED. NO HEART BEAT WAS CONFIRMED WITH HERBERTH TORIBIO RN. TIME OF WAS 9:03. PAD EXTRACTION TENDER WAS CONTACTED. FAMILY STATES THAT [facility] IS HOME.
--- NOTE | 2021-11-20 09:57 | NUR ---
[facility] notified of patient , referral number [id number]. Family has chosen [facility] in [place] ([phone]), they have been notified.
--- NOTE | 2021-11-20 10:30 | NUR ---
FAMILY STATES THAT THE PT DOES NOT HAVE ANY VAULABLES WITH HIM. NO GLASSES, TEETH OR HEARING AIDS. "IT WAS ALL LEFT AT HOME." INFORMED FAMILY TO TAKE MUCH TIME THEY NEEDED. FAMILY WAS ASKING ABOUT AN AUTOPSY. INFOMRED PT THAT IS WAS NOT MEDICALLY NEEDED BUT THAT THEY COULD REQUEST ONE AND PAY FOR IT OUT OF POCKET. FAMILY DENIES. POSTMORTUM CARE WAS PERFORMED. IVSX2 WAS DCed. IJ IN RIGHT NECK WAS REMOVED AND PRESSURE DRESSING APPLIED. RECTAL TUBE WAS REPLACED. PT DID HAVE A NECKLACE LEFT ON HIM. INFOMRED HOME OF THIS.
--- NOTE | 2021-11-20 10:49 | NUR ---
Patient this morning. SW notified Lizbeth at [facility].
--- NOTE | 2021-11-20 11:57 | NUR ---
PT LAYING IN BED WITH FAMILY AT BEDSIDE. VERY SHALLOW BREATHS. NOT RESPONSIVE. FAMILY STATES NO NEEDS AT THIS TIME.
== END 2021-11-20 11:15 | disposition expired | DRG 871 ==
LOC: COL.ER 02:32 → ICU 05:32 → MEDICAL 11-19 13:03
PROVIDERS: Internal Medicine Pulmonary Disease; Nurse Practitioner Family; Personal Emergency Response Attendant; ADMIT Student in an Organized Health Care Education/Training Program
PROC: 5A1945Z Respiratory Ventilation, 24-96 Consecutive Hours (ICD-10-PCS; 2021-11-16)
PROC: 5A09357 Assistance with Respiratory Ventilation, Less than 24 Consecutive Hours, Continuous Positive Airway Pressure (ICD-10-PCS; principal; 2021-11-18)
DX: A41.9 Sepsis, unspecified organism (principal); N18.6 End stage renal disease; J18.9 Pneumonia, unspecified organism; J96.01 Acute respiratory failure with hypoxia; I21.4 Non-ST elevation (NSTEMI) myocardial infarction; E43 Unspecified severe protein-calorie malnutrition; G93.41 Metabolic encephalopathy; Z94.83 Pancreas transplant status; N25.81 Secondary hyperparathyroidism of renal origin; E87.2 Acidosis; I50.20 Unspecified systolic (congestive) heart failure; I13.2 Hypertensive heart and chronic kidney disease with heart failure and with stage 5 chronic kidney disease, or end stage renal disease; Z68.1 Body mass index [BMI] 19.9 or less, adult; E11.22 Type 2 diabetes mellitus with diabetic chronic kidney disease; F03.90 Unspecified dementia, unspecified severity, without behavioral disturbance, psychotic disturbance, mood disturbance, and anxiety; E03.9 Hypothyroidism, unspecified; B19.20 Unspecified viral hepatitis C without hepatic coma; E11.649 Type 2 diabetes mellitus with hypoglycemia without coma; F32.A Depression, unspecified; F41.9 Anxiety disorder, unspecified; B97.89 Other viral agents as the cause of diseases classified elsewhere; R65.20 Severe sepsis without septic shock; Z66 Do not resuscitate; K21.9 Gastro-esophageal reflux disease without esophagitis; E87.5 Hyperkalemia; I34.0 Nonrheumatic mitral (valve) insufficiency; Z20.822 Contact with and (suspected) exposure to COVID-19; Z99.2 Dependence on renal dialysis; Z79.890 Hormone replacement therapy; Z51.5 Encounter for palliative care; Z90.49 Acquired absence of other specified parts of digestive tract; Z86.73 Personal history of transient ischemic attack (TIA), and cerebral infarction without residual deficits; Z23 Encounter for immunization
CPT/HCPCS: 99223-AI; 99233-AI; 99239; C9113; J0456; J0696; J1644; J1720; J2270; J2543; J2704; J3010; J3370; J7030; J7040; J7050; J7060